=== PATIENT | male | born 1990 | race Caucasian/White ===

== ENCOUNTER 2018-09-12 08:20 | Emergency (ER) | payer OTHER ==
--- NOTE | 2018-09-12 09:03 | EDPHY ---
H & P Time Seen by Provider: 09/12/18 08:55 HPI/ROS: CHIEF COMPLAINT: Left thumb pain injury HISTORY OF PRESENT ILLNESS: 27-year-old aoroo-paan-jcsvdams male complaining of acute left thumb pain particularly the 1st metacarpal after he was playing basketball yesterday and somebody impacted this area. He is wearing a pre- hospital knee brain thumb spica splint and notes continued pain. Notes decreased opposition. PRIMARY CARE PROVIDER: REVIEW OF SYSTEMS: A ten point review of systems was performed and is negative with the exception of the items mentioned in the HPI PHYSICAL EXAM (Prior to examination, patient consented to physical exam, hands were washed and my usual and customary physical exam procedures followed) 1) GENERAL: Well-developed, well-nourished, alert and oriented. Appears to be in no acute distress. 2) HEAD: Normocephalic 3) HEENT: Pupils equal, round, reactive to light bilaterally. 4) LUNGS: Breathing comfortably. 5) MUSCULOSKELETAL: Soft compartments. Normal coloration. Extension abduction , flexion, opposition intact although opposition is limited secondary to pain 6) SKIN: Soft tissue swelling to the thenar eminence noted with associated tenderness. 7) VASCULAR: pulses and cap refill present are brisk 8) NEUROLOGIC: Radial, ulnar, median nerve function intact with no deficits appreciated on exam DIFFERENTIAL DIAGNOSIS: in no particular order including but not limited to fracture, sprain, compartment syndrome Procedure: Splint A Velcro thumb spica splint was applied by ER forest technician. After application of the splint I returned and re-examined the patient. The splint was adequately immobilizing the joint and distal to the splint the patient's circulation and sensation were intact. Patient shows no signs of compartment syndrome. Was given orthopedic precautions. Smoking Status: Never smoked Constitutional: Initial Vital Signs Temperature (C) 36.5 C 09/12/18 08:27 Heart Rate 72 09/12/18 08:27 Respiratory Rate 16 09/12/18 08:27 Blood Pressure 127/75 H 09/12/18 08:27 O2 Sat (%) 98 09/12/18 08:27 O2 Delivery Mode Room Air Allergies/Adverse Reactions: No Allergies [NKDA] Allergy (Verified 09/12/18 08:29) Home Medications: Medication Instructions Recorded Acne Med Unk Dose 04/22/14 Hydrocodone/APAP 325 [[place] 1 each PO Q4-6PRN PRN #15 tab 11/05/14 5/325 (*)] MDM/Departure - MDM ED Course/Re-evaluation: Although x-ray shows no definitive fracture patient has been informed that ulnar collateral ligament and/or other non osseous injury is not ruled out. He has been placed in a Velcro thumb spica and recommended follow-up with Hand surgery to evaluate for possible ulnar collateral ligament and/or other non osseous injury. Patient feels comfortable being discharged. All questions and concerns addressed by myself. Patient given my usual and customary discharge precautions and instructions regarding their clinical impression. Care of patient under supervision of secondary supervising physician Dr Mullins . - Depart Disposition: Home, Routine, Self-Care Clinical Impression: Thumb sprain Qualifiers: Encounter type: initial encounter Sprain of finger site: metacarpophalangeal joint Laterality: left Qualified Code(s): S63.642A - Sprain of metacarpophalangeal joint of left thumb, initial encounter Condition: Good Instructions: Finger Sprain (ED), Skier's Thumb (ED) Additional Instructions: Return to the ER immediately if you experience discoloration, have worsening pain, numbness, tingling, or any other symptoms that concern you. If you received x-rays in the emergency department today, be advised, that ligamentous , tendon, muscular, and other non-bony injury cannot be fully ruled out. Try to keep your affected extremity elevated above the level of your chest, and keep cold packs on the affected area, for the next 48 hours. Adult Pain & Fever Control: We recommend Acetaminophen (Tylenol) and Ibuprofen (Motrin,Advil) for pain and fever control. When fever is high or pain severe, both drugs can be used at the same time, but at different intervals. Please note the time differences. Your dose is: Acetaminophen 650 mg every 4 to 6 hours Ibuprofen 600 mg every 6 hours with food OR Note: do not take Acetaminophen with Hydrocodone (Vicodin, Lortab) or Oycodone (Percocet). These medications also contain Acetaminophen. No more than 3000mg of Acetaminophen should be taken in 24 hours (for an adult). Referrals: Wally Guzman MD [Medical Doctor] - 2-3 days, call for appt.
[2018-09-12 09:36] VITALS: BP 111/77
== END 2018-09-12 09:36 | disposition home or self-care (01) ==
DX: S63.642A Sprain of metacarpophalangeal joint of left thumb, initial encounter (principal); W50.0XXA Accidental hit or strike by another person, initial encounter; Y93.67 Activity, basketball
CPT/HCPCS: L3807